=== PATIENT | female | born 1985 | race Caucasian/White ===

== ENCOUNTER → 2024-06-25 11:19 | Outpatient (REF) | payer OTHER, SELFPAY | LOC: RAD 11:19 | PROVIDERS: ATTENDING PHYSICIAN Physician Assistant Medical | DX: M79.18 Myalgia, other site (principal); M54.50 Low back pain, unspecified | CPT/HCPCS: 72110; 72202 ==

== ENCOUNTER → 2025-05-26 12:16 | Outpatient (REF) | payer OTHER, SELFPAY | LOC: DHSLP 12:16 | PROVIDERS: ATTENDING PHYSICIAN Internal Medicine | DX: G47.19 Other hypersomnia (principal); R06.83 Snoring | CPT/HCPCS: 95800 ==